=== PATIENT | male | born 1980 | race Caucasian/White ===

== ENCOUNTER 2016-06-23 09:37 | Emergency (ER) | payer OTHER | END 2016-06-23 11:45 | disposition home or self-care (01) | LOC: ER 09:37 | DX: A08.4 Viral intestinal infection, unspecified (principal); I25.10 Atherosclerotic heart disease of native coronary artery without angina pectoris; K21.9 Gastro-esophageal reflux disease without esophagitis; Z79.899 Other long term (current) drug therapy | CPT/HCPCS: 36415; 96361; 96374 ==

== ENCOUNTER 2016-06-24 10:26 | Emergency (ER) | payer OTHER | END 2016-06-24 14:00 | disposition home or self-care (01) | LOC: ER 10:26 | DX: R07.89 Other chest pain (principal); E87.6 Hypokalemia; I25.10 Atherosclerotic heart disease of native coronary artery without angina pectoris; I25.2 Old myocardial infarction; I10 Essential (primary) hypertension; Z79.82 Long term (current) use of aspirin; Z79.899 Other long term (current) drug therapy | CPT/HCPCS: 36415; 87502; 96361; 96374 ==

== ENCOUNTER 2016-07-05 12:59 | Emergency (ER) | payer OTHER | END 2016-07-05 13:32 | disposition home or self-care (01) | LOC: ER 12:59 | DX: M72.2 Plantar fascial fibromatosis (principal); I25.2 Old myocardial infarction; I25.10 Atherosclerotic heart disease of native coronary artery without angina pectoris; F41.0 Panic disorder [episodic paroxysmal anxiety]; Z79.82 Long term (current) use of aspirin; Z79.899 Other long term (current) drug therapy ==

== ENCOUNTER 2016-08-21 15:41 | Emergency (ER) | payer OTHER | END 2016-08-21 18:09 | disposition home or self-care (01) | LOC: ER 15:41 | DX: R07.9 Chest pain, unspecified (principal); M54.5 Low back pain; F41.9 Anxiety disorder, unspecified; I25.2 Old myocardial infarction; Z95.5 Presence of coronary angioplasty implant and graft; Z79.82 Long term (current) use of aspirin; X50.0XXA Overexertion from strenuous movement or load, initial encounter | CPT/HCPCS: 36415; 96374; J1885 ==

== ENCOUNTER 2016-10-12 17:08 | Emergency (ER) | payer OTHER | END 2016-10-12 20:38 | disposition home or self-care (01) | LOC: ER 17:08 | DX: R07.89 Other chest pain (principal); I25.10 Atherosclerotic heart disease of native coronary artery without angina pectoris; I25.2 Old myocardial infarction; F41.9 Anxiety disorder, unspecified; Z95.1 Presence of aortocoronary bypass graft; Z79.82 Long term (current) use of aspirin; Z79.899 Other long term (current) drug therapy | CPT/HCPCS: 36415 ==